=== PATIENT | female | born 1940 | race Caucasian/White ===

== ENCOUNTER 2023-04-16 20:11 | Inpatient (IN) | payer OTHER, MEDICARE ==
[2023-04-16 20:31] VITALS: BMI 27.9
[2023-04-16] MEDS ORDERED: SODIUM CHLORIDE 1,000 ML IV ONE (20:38)
[2023-04-16 20:58] LABS: HEMATOCRIT 33.4 % (32.4-45.2); HEMOGLOBIN 10.7 G/dL (10.7-15.3); MCH 34.1 pg (25.7-33.7); MCHC 32.1 g/dl (32.0-36.0); MEAN CELL VOLUME 106.4 fl (80-96); RBC 3.14 10^6/uL (3.60-5.2); RDW 12.9 % (11.6-15.6); WHITE BLOOD COUNT 7.2 10^3/uL (4.0-10.8)
[2023-04-16 21:03] LABS: INR 1.06 (0.83-1.09); PROTHROMBIN TIME (PATIENT) 12.3 SEC (9.7-13.0)
[2023-04-16 21:11] LABS: EPITHELIAL CELLS FEW /hpf
[2023-04-16 21:14] LABS: MAGNESIUM 1.7 mg/dL (1.8-2.4); PHOSPHOROUS 3.03 (2.5-4.9)
[2023-04-16] MEDS ORDERED: PANTOPRAZOLE SODIUM 40 MG VIAL IVPUSH ONE (23:04)
[2023-04-16] MEDS ORDERED: PANTOPRAZOLE SODIUM 40 MG VIAL ONE (23:05)
[2023-04-16 23:25] LABS: HEMATOCRIT 33.7 % (32.4-45.2); HEMOGLOBIN 10.9 G/dL (10.7-15.3); MCH 34.4 pg (25.7-33.7); MCHC 32.4 g/dl (32.0-36.0); MEAN CELL VOLUME 106.1 fl (80-96); MEAN PLT VOLUME 7.7 fl (7.5-11.1); PLATELET COUNT 313.3 10^3/uL (134-434); RBC 3.18 10^6/uL (3.60-5.2); RDW 12.8 % (11.6-15.6)
[2023-04-17 07:12] LABS: HEMATOCRIT 28.7 % (32.4-45.2); HEMOGLOBIN 9.3 G/dL (10.7-15.3); MCHC 32.3 g/dl (32.0-36.0); MEAN CELL VOLUME 105.3 fl (80-96); MEAN PLT VOLUME 7.9 fl (7.5-11.1); PLATELET COUNT 288.7 10^3/uL (134-434); RBC 2.73 10^6/uL (3.60-5.2); RDW 12.9 % (11.6-15.6); WHITE BLOOD COUNT 4.5 10^3/uL (4.0-10.8)
[2023-04-17 07:20] LABS: ALBUMIN 3.6 g/dl (3.4-5.0); BILIRUBIN,TOTAL 0.3 mg/dl (0.2-1); BLOOD UREA NITROGEN 24.8 mg/dl (7-18); CALCIUM 9.1 mg/dl (8.5-10.1); CREATININE 0.6 mg/dl (0.6-1.3); POTASSIUM 3.7 mmol/L (3.5-5.1); SGPT/ALT 10.1 U/L (7-52); TOT PROT 5.3 g/dl (6.4-8.2)
[2023-04-17] MEDS ORDERED: INSULIN SLIDING SCALE (NOVOLOG) 1 VIAL SQ SCH ×2 (11:00→14:44)
[2023-04-17] MEDS ORDERED: PANTOPRAZOLE SODIUM 40 MG VIAL IVPUSH SCH (13:00)
[2023-04-17] MEDS: LACTATED RINGERS SOLUTION 1,000 ML IV SCH (14:43)
[2023-04-17] MEDS ORDERED: LEVOTHYROXINE SODIUM 100 MCG 5 ML VIAL IVPUSH ONE (15:00)
[2023-04-17 15:40] LABS: HEMATOCRIT 29.1 % (32.4-45.2); HEMOGLOBIN 9.5 GM/dL (10.7-15.3); MCH 33.4 pg (25.7-33.7); MCHC 32.7 g/dl (32.0-36.0); MEAN CELL VOLUME 102.1 fl (80-96); MEAN PLT VOLUME 7.9 fl (7.5-11.1); PLATELET COUNT 277 10^3/uL (134-434); RBC 2.85 M/mm3 (3.60-5.2); RDW 13.3 % (11.6-15.6); WHITE BLOOD COUNT 3.9 K/mm3 (4.0-10.0)
[2023-04-17] MEDS ORDERED: ACETAMINOPHEN 325 MG TABLET (FP) PO ONE (20:01)
[2023-04-17 20:54] LABS: HEMATOCRIT 27.4 % (32.4-45.2); HEMOGLOBIN 9.1 GM/dL (10.7-15.3); MCH 33.6 pg (25.7-33.7); MCHC 33.3 g/dl (32.0-36.0); MEAN CELL VOLUME 101.2 fl (80-96); MEAN PLT VOLUME 7.7 fl (7.5-11.1); PLATELET COUNT 258 10^3/uL (134-434); RBC 2.71 M/mm3 (3.60-5.2); RDW 13.1 % (11.6-15.6); WHITE BLOOD COUNT 6.7 K/mm3 (4.0-10.0)
[2023-04-17] MEDS: PANTOPRAZOLE 40 MG TABLET PO SCH (21:21)
[2023-04-17] MEDS ORDERED: ALPHA LIPOIC ACID 600 MG PO SCH (22:00)
[2023-04-17] MEDS ORDERED: CHONDROITIN SULFATE A SODIUM PO SCH (22:00)
[2023-04-17] MEDS ORDERED: PATIENT'S OWN MEDICATION (NON-FORMULARY) (Glucosamine Sulfate Dipot Chlr [Glucosamine] 1,0 PO SCH (22:00)
[2023-04-18] MEDS: LACTATED RINGERS SOLUTION 1,000 ML IV SCH ×2 (05:31→18:41)
[2023-04-18] MEDS: ANASTROZOLE 1 MG TABLET PO SCH (09:32)
[2023-04-18] MEDS: amLODIPine BESYLATE 2.5 MG TABLET (FP) PO SCH (09:32)
[2023-04-18] MEDS: PANTOPRAZOLE 40 MG TABLET PO SCH ×2 (09:32→21:57)
[2023-04-18] MEDS: LOSARTAN POTASSIUM 50 MG TABLET PO SCH (09:32)
[2023-04-18] MEDS: GABAPENTIN 100 MG CAPSULE PO SCH (09:32)
[2023-04-18] MEDS: DULoxetine HCL 20 MG CAPSULE.DR PO SCH (09:32)
[2023-04-18 09:35] LABS: BASO % 0.4 % (0-2.0); EOS % 9.8 % (0-4.5); HEMATOCRIT 28.6 % (32.4-45.2); HEMOGLOBIN 9.4 GM/dL (10.7-15.3); LYMPH % 24.1 % (8-40); MCH 34.2 pg (25.7-33.7); MEAN CELL VOLUME 103.7 fl (80-96); MEAN PLT VOLUME 8.2 fl (7.5-11.1); MONO % 5.7 % (3.8-10.2); PLATELET COUNT 265 10^3/uL (134-434); RBC 2.75 M/mm3 (3.60-5.2); RDW 13.3 % (11.6-15.6); WHITE BLOOD COUNT 4.2 K/mm3 (4.0-10.0)
[2023-04-18 09:48] LABS: POTASSIUM 3.7 mmol/L (3.5-5.1)
[2023-04-18 09:50] LABS: ALBUMIN 3.4 g/dl (3.4-5.0); CALCIUM 9.1 mg/dL (8.5-10.1); MAGNESIUM 1.8 mg/dL (1.8-2.4)
[2023-04-18 09:51] LABS: BLOOD UREA NITROGEN 9.6 mg/dL (7-18)
[2023-04-18 09:53] LABS: CREATININE 0.5 mg/dL (0.55-1.3); PHOSPHOROUS 2.9 mg/dL (2.5-4.9)
[2023-04-18 09:55] LABS: BILIRUBIN,TOTAL 0.3 mg/dL (0.2-1); TOT PROT 5.8 g/dl (6.4-8.2)
[2023-04-18] MEDS ORDERED: MECLIZINE HCL 25 MG TABLET (FP) PO ONE (16:05)
[2023-04-18 17:43] LABS: URINE APPEARANCE CLEAR; URINE BILIRUBIN NEGATIVE (NEGATIVE); URINE COLOR YELLOW; URINE GLUCOSE (UA) NEGATIVE (NEGATIVE); URINE KETONE NEGATIVE (NEGATIVE); URINE LEUK ESTERASE NEGATIVE (NEGATIVE); URINE NITRITE NEGATIVE (NEGATIVE); URINE PROTEIN NEGATIVE (NEGATIVE)
[2023-04-18] MEDS ORDERED: ROSUVASTATIN CA 5 MG TABLET PO SCH (22:00)
[2023-04-19] MEDS ORDERED: ACETAMINOPHEN 325 MG TABLET (FP) PO PRN (00:19)
[2023-04-19 07:19] VITALS: RESP 18
[2023-04-19 08:56] LABS: BASO % 0.3 % (0-2.0); EOS % 9.4 % (0-4.5); HEMATOCRIT 26.8 % (32.4-45.2); LYMPH % 27.8 % (8-40); MCH 34.8 pg (25.7-33.7); MCHC 33.6 g/dl (32.0-36.0); MEAN CELL VOLUME 103.3 fl (80-96); MEAN PLT VOLUME 7.9 fl (7.5-11.1); MONO % 8.5 % (3.8-10.2); PLATELET COUNT 274 10^3/uL (134-434); RDW 12.9 % (11.6-15.6); WHITE BLOOD COUNT 3.6 K/mm3 (4.0-10.0)
[2023-04-19] MEDS: amLODIPine BESYLATE 2.5 MG TABLET (FP) PO SCH (09:53)
[2023-04-19] MEDS: LOSARTAN POTASSIUM 50 MG TABLET PO SCH (09:53)
[2023-04-19] MEDS: ANASTROZOLE 1 MG TABLET PO SCH (09:53)
[2023-04-19] MEDS: DULoxetine HCL 20 MG CAPSULE.DR PO SCH (09:53)
[2023-04-19] MEDS: PANTOPRAZOLE 40 MG TABLET PO SCH (09:53)
[2023-04-19] MEDS: GABAPENTIN 100 MG CAPSULE PO SCH (09:53)
[2023-04-19] MEDS: LACTATED RINGERS SOLUTION 1,000 ML IV SCH (12:02)
[2023-04-19 13:46] VITALS: BP 153/87; PULSE 88; TEMP 98.1
== END 2023-04-19 14:45 | disposition home or self-care (01) | DRG 378 ==
LOC: FER 20:11 → J8W 04-17 09:23
PROVIDERS: ADMIT Internal Medicine; ATTEND Nurse Practitioner Family
PROC: 0DB78ZX Excision of Stomach, Pylorus, Via Natural or Artificial Opening Endoscopic, Diagnostic (ICD-10-PCS; principal; 2023-04-17 14:45)
DX: K25.0 Acute gastric ulcer with hemorrhage (principal); D62 Acute posthemorrhagic anemia; K76.6 Portal hypertension; I10 Essential (primary) hypertension; E11.9 Type 2 diabetes mellitus without complications; E78.00 Pure hypercholesterolemia, unspecified; K21.9 Gastro-esophageal reflux disease without esophagitis; K44.9 Diaphragmatic hernia without obstruction or gangrene; M41.80 Other forms of scoliosis, site unspecified; K31.89 Other diseases of stomach and duodenum; T39.395A Adverse effect of other nonsteroidal anti-inflammatory drugs [NSAID], initial encounter; E06.3 Autoimmune thyroiditis; K80.70 Calculus of gallbladder and bile duct without cholecystitis without obstruction; Z85.3 Personal history of malignant neoplasm of breast; Z86.718 Personal history of other venous thrombosis and embolism
CPT/HCPCS: 36415; 71045-TC-FY; 80053; 81003; 81015; 82550; 82607; 82728; 82746; 82962; 83540; 83550; 83605; 83690; 83735; 84100; 84484; 85025; 85027; 85045; 85610; 86850; 86900; 86901; 87086; 87635; 88305-TC; 88342-TC; 93005; 97116-GP; 97161-GP; 99285-25

== ENCOUNTER 2023-09-09 21:09 | Inpatient (IN) | payer OTHER, MEDICARE ==
[2023-09-09] MEDS ORDERED: ACETAMINOPHEN 1000 MG/100 ML BAG IVPB ONE (21:31)
[2023-09-09] MEDS ORDERED: ACETAMINOPHEN INJECTION 100 ML IVPB ONE (21:33)
[2023-09-09 22:12] LABS: HEMOGLOBIN 9.3 G/dL (10.7-15.3); MCH 29.8 pg (25.7-33.7); MCHC 30.8 g/dl (32.0-36.0); MEAN CELL VOLUME 96.7 fl (80-96); MEAN PLT VOLUME 7.5 fl (7.5-11.1); PLATELET COUNT 506.8 10^3/uL (134-434); RDW 17.5 % (11.6-15.6); WHITE BLOOD COUNT 6.9 10^3/uL (4.0-10.8)
[2023-09-09 23:01] LABS: POTASSIUM 4.4 mmol/L (3.5-5.1)
[2023-09-09 23:03] LABS: CALCIUM 9.3 mg/dL (8.5-10.1); MAGNESIUM 2.1 mg/dL (1.8-2.4)
[2023-09-09 23:04] LABS: ALBUMIN 3.8 g/dl (3.4-5.0); BLOOD UREA NITROGEN 22.3 mg/dL (7-18)
[2023-09-09 23:07] LABS: CREATININE 1.1 mg/dL (0.55-1.3); PHOSPHOROUS 3.5 mg/dL (2.5-4.9)
[2023-09-09 23:08] LABS: TOT PROT 6.8 g/dl (6.4-8.2)
[2023-09-09 23:09] LABS: BILIRUBIN,TOTAL 0.2 mg/dL (0.2-1)
[2023-09-09] MEDS ORDERED: PROPOFOL 200 MG/20 ML VIAL IVPUSH ONE ×2 (23:30)
[2023-09-10] MEDS ORDERED: CEFTRIAXONE 1,000 MG in DEXTROSE 5%-WATER - 50 ML IVPB ONE (00:03)
[2023-09-10] MEDS ORDERED: cefTRIAXone SODIUM 1 GM VIAL ONE (00:05)
[2023-09-10] MEDS ORDERED: DOCUSATE SODIUM 100 MG CAPSULE (FP) PO PRN (00:43)
[2023-09-10] MEDS ORDERED: MELATONIN 5 MG TABLETS PO PRN (00:52)
[2023-09-10] MEDS: SODIUM CHLORIDE 1,000 ML IV SCH (01:37)
[2023-09-10] MEDS: ACETAMINOPHEN 325 MG TABLET (FP) PO PRN ×3 (04:37→20:21)
[2023-09-10 05:38] VITALS: BMI 29.0
[2023-09-10] MEDS: LEVOTHYROXINE NA 25 MCG TABLET (FP) PO SCH (07:12)
[2023-09-10] MEDS: INSULIN SLIDING SCALE (NOVOLOG) 1 VIAL SQ SCH ×4 (07:13→21:59)
[2023-09-10] MEDS: LOSARTAN POTASSIUM 50 MG TABLET PO SCH (09:21)
[2023-09-10] MEDS: amLODIPine BESYLATE 2.5 MG TABLET (FP) PO SCH (09:22)
[2023-09-10] MEDS: GABAPENTIN 100 MG CAPSULE PO SCH (09:22)
[2023-09-10] MEDS: PANTOPRAZOLE 40 MG TABLET PO SCH (09:22)
[2023-09-10] MEDS: MULTIVITAMINS (DAILY MVI) TABLET (FP) PO SCH (09:24)
[2023-09-10] MEDS: THIAMINE HCL 100 MG TABLET (FP) PO SCH (09:24)
[2023-09-10] MEDS: FOLIC ACID 1 MG TABLET (FP) PO SCH (09:24)
[2023-09-10] MEDS ORDERED: HYDROCHLOROTHIAZIDE 12.5 MG CAPSULE (FP) PO SCH (10:00)
[2023-09-10] MEDS ORDERED: LORazepam 2 MG/ML SDV VIAL IVPUSH PRN (15:47)
[2023-09-10] MEDS: ALBUTEROL SO4 2.5/IPRATROPIUM 0.5 INH SOL 3 ML VIAL.NEB. NEB SCH ×2 (16:00→20:21)
[2023-09-10] MEDS ORDERED: CEFTRIAXONE 1 GM in DEXTROSE 5%-WATER - 50 ML IVPB SCH (22:00)
[2023-09-10] MEDS: ROSUVASTATIN CA 5 MG TABLET PO SCH (22:03)
[2023-09-11] MEDS: ACETAMINOPHEN 325 MG TABLET (FP) PO PRN ×3 (03:38→22:08)
[2023-09-11] MEDS: LEVOTHYROXINE NA 25 MCG TABLET (FP) PO SCH (06:31)
[2023-09-11] MEDS: SODIUM CHLORIDE 1,000 ML IV SCH (06:34)
[2023-09-11] MEDS: INSULIN SLIDING SCALE (NOVOLOG) 1 VIAL SQ SCH ×4 (06:36→21:55)
[2023-09-11] MEDS: ALBUTEROL SO4 2.5/IPRATROPIUM 0.5 INH SOL 3 ML VIAL.NEB. NEB SCH ×4 (09:34→21:55)
[2023-09-11] MEDS: THIAMINE HCL 100 MG TABLET (FP) PO SCH (09:35)
[2023-09-11] MEDS: PANTOPRAZOLE 40 MG TABLET PO SCH (09:35)
[2023-09-11] MEDS: amLODIPine BESYLATE 2.5 MG TABLET (FP) PO SCH (09:35)
[2023-09-11] MEDS: MULTIVITAMINS (DAILY MVI) TABLET (FP) PO SCH (09:36)
[2023-09-11] MEDS: FOLIC ACID 1 MG TABLET (FP) PO SCH (09:36)
[2023-09-11] MEDS: GABAPENTIN 100 MG CAPSULE PO SCH (09:36)
[2023-09-11] MEDS: LOSARTAN POTASSIUM 50 MG TABLET PO SCH (09:36)
[2023-09-11 09:59] LABS: ALBUMIN 3.9 g/dl (3.4-5.0); BILIRUBIN,TOTAL 0.2 mg/dl (0.2-1); CALCIUM 9.5 mg/dl (8.5-10.1); CREATININE 0.6 mg/dl (0.6-1.3); POTASSIUM 4.2 mmol/L (3.5-5.1); TOT PROT 5.9 g/dl (6.4-8.2)
[2023-09-11 10:06] LABS: HEMATOCRIT 28.2 % (32.4-45.2); WHITE BLOOD COUNT 3.7 K/mm3 (4.0-10.0)
[2023-09-11 10:08] LABS: HEMOGLOBIN 8.9 GM/dL (10.7-15.3); MCH 29.2 pg (25.7-33.7); MCHC 31.6 g/dl (32.0-36.0); MEAN CELL VOLUME 92.2 fl (80-96); MEAN PLT VOLUME 7.5 fl (7.5-11.1); PLATELET COUNT 484 10^3/uL (134-434); RBC 3.06 M/mm3 (3.60-5.2); RDW 18.9 % (11.6-15.6)
[2023-09-11 11:13] LABS: ANISOCYTOSIS 1+; MACROCYTOSIS 1+
[2023-09-11] MEDS ORDERED: LORazepam 2 MG/ML SDV VIAL IVPUSH PRN (12:40)
[2023-09-11] MEDS: ROSUVASTATIN CA 5 MG TABLET PO SCH (21:55)
[2023-09-12 01:54] VITALS: RESP 18
[2023-09-12] MEDS: LEVOTHYROXINE NA 25 MCG TABLET (FP) PO SCH (06:27)
[2023-09-12] MEDS: SODIUM CHLORIDE 1,000 ML IV SCH (06:27)
[2023-09-12] MEDS: INSULIN SLIDING SCALE (NOVOLOG) 1 VIAL SQ SCH ×2 (06:40→11:19)
[2023-09-12] MEDS ORDERED: amLODIPine BESYLATE 5 MG TABLET (FP) PO SCH (07:30)
[2023-09-12] MEDS: ACETAMINOPHEN 325 MG TABLET (FP) PO PRN (08:00)
[2023-09-12] MEDS: ALBUTEROL SO4 2.5/IPRATROPIUM 0.5 INH SOL 3 ML VIAL.NEB. NEB SCH ×2 (08:00→11:19)
[2023-09-12 08:04] LABS: HEMATOCRIT 30.3 % (32.4-45.2); HEMOGLOBIN 9.3 G/dL (10.7-15.3); MCH 29.4 pg (25.7-33.7); MCHC 30.5 g/dl (32.0-36.0); MEAN CELL VOLUME 96.1 fl (80-96); MEAN PLT VOLUME 7.8 fl (7.5-11.1); PLATELET COUNT 482.8 10^3/uL (134-434); RBC 3.15 10^6/uL (3.60-5.2); RDW 17.4 % (11.6-15.6); WHITE BLOOD COUNT 4.5 10^3/uL (4.0-10.8)
[2023-09-12] MEDS ORDERED: ACETAMINOPHEN 500 MG TABLET (FP) PO PRN (08:15)
[2023-09-12 08:36] LABS: CALCIUM 9.7 mg/dl (8.5-10.1); CREATININE 0.6 mg/dl (0.6-1.3); POTASSIUM 4.4 mmol/L (3.5-5.1)
[2023-09-12] MEDS: PANTOPRAZOLE 40 MG TABLET PO SCH (09:43)
[2023-09-12] MEDS: MULTIVITAMINS (DAILY MVI) TABLET (FP) PO SCH (09:43)
[2023-09-12] MEDS: GABAPENTIN 100 MG CAPSULE PO SCH (09:43)
[2023-09-12] MEDS: FOLIC ACID 1 MG TABLET (FP) PO SCH (09:43)
[2023-09-12] MEDS: LOSARTAN POTASSIUM 50 MG TABLET PO SCH (09:43)
[2023-09-12] MEDS: THIAMINE HCL 100 MG TABLET (FP) PO SCH (09:43)
[2023-09-12] MEDS ORDERED: ENOXAPARIN NA (PORCINE) 40 MG/0.4 ML DISP.SYRIN SQ SCH (10:00)
[2023-09-12 14:24] VITALS: BP 156/76; PULSE 80; TEMP 98.6
== END 2023-09-12 14:55 | disposition home or self-care (01) | DRG 312 ==
LOC: FER 21:09 → FM/S 09-10 01:27 → OBSVTOIN 09-11 09:27
PROVIDERS: ADMIT Internal Medicine; ATTEND Internal Medicine
DX: R55 Syncope and collapse (principal); S02.32XA Fracture of orbital floor, left side, initial encounter for closed fracture; S43.005A Unspecified dislocation of left shoulder joint, initial encounter; Z85.3 Personal history of malignant neoplasm of breast; J44.9 Chronic obstructive pulmonary disease, unspecified; E11.9 Type 2 diabetes mellitus without complications; I10 Essential (primary) hypertension; E78.5 Hyperlipidemia, unspecified; E03.9 Hypothyroidism, unspecified; F10.129 Alcohol abuse with intoxication, unspecified; K21.9 Gastro-esophageal reflux disease without esophagitis; W19.XXXA Unspecified fall, initial encounter; Y93.9 Activity, unspecified; Y92.89 Other specified places as the place of occurrence of the external cause; Y99.9 Unspecified external cause status
CPT/HCPCS: 36415; 70450-TC; 70486-TC; 71045-TC-FY; 73030-TC-LT-FY; 80048; 80053; 80307; 82550; 82962; 83735; 84100; 84443; 84484; 85027; 93005; 94640; 97116-GP; 97161-GP; 99285-25; G0378

== ENCOUNTER 2023-09-29 04:30 | Inpatient (IN) | payer OTHER, MEDICARE ==
[2023-09-29] MEDS ORDERED: FOLIC ACID INJECTION - 1 MG, THIAMINE HCL 100 MG, MULTIVIT INJECTION ADULT 10 ML in SOD... IVPB ONE (04:36)
[2023-09-29] MEDS ORDERED: THIAMINE HCL 200 MG/2 ML VIAL ONE (04:47)
[2023-09-29] MEDS ORDERED: FOLIC ACID 5 MG/1 ML ONE (04:47)
[2023-09-29] MEDS ORDERED: MULTIVIT INJ. ADULT COMBO WITH VIT K 1 COMBO 10 ML VIAL IV ONE (04:48)
[2023-09-29] MEDS ORDERED: FAMOTIDINE 20 MG/50 ML IVPB 20 MG/50 ML MG IVPB ONE ×2 (05:45→06:53)
[2023-09-29 05:46] LABS: BASO % 0.4 % (0-2.0); EOS % 1.6 % (0-4.5); HEMATOCRIT 26.2 % (32.4-45.2); HEMOGLOBIN 8.5 GM/dL (10.7-15.3); LYMPH % 11.1 % (8-40); MCH 29.8 pg (25.7-33.7); MCHC 32.3 g/dl (32.0-36.0); MEAN PLT VOLUME 7.8 fl (7.5-11.1); MONO % 3.4 % (3.8-10.2); NEUT % 83.5 % (42.8-82.8); PLATELET COUNT 538 10^3/uL (134-434); RBC 2.84 M/mm3 (3.60-5.2); RDW 17.4 % (11.6-15.6); WHITE BLOOD COUNT 9.9 K/mm3 (4.0-10.0)
[2023-09-29] MEDS ORDERED: SODIUM CHLORIDE 0.9% 1000 ML INFUS.BAG IV ONE (07:12)
[2023-09-29 08:54] LABS: ALK PHOS 93 U/L (45-117); ANION GAP 9 mmol/L (4-13); BILIRUBIN,TOTAL 0.2 mg/dL (0.2-1); BLOOD UREA NITROGEN 19.6 mg/dL (7-18); CALCIUM 9.6 mg/dL (8.5-10.1); CHLORIDE 106 mmol/L (98-107); CO2 28 mmol/L (21-32); CREATININE 0.8 mg/dL (0.55-1.3); GLUCOSE,RANDOM 207 mg/dL (74-106); POTASSIUM 4.1 mmol/L (3.5-5.1); SGOT/AST 20 U/L (15-37); SGPT/ALT 19 U/L (13-61); SODIUM 142 mmol/L (136-145); TOT PROT 6.9 g/dl (6.4-8.2)
[2023-09-29 09:40] LABS: LIPASE 79 U/L (73-393)
[2023-09-29 12:28] LABS: EPITHELIAL CELLS 0-5 /hpf
[2023-09-29] MEDS ORDERED: LIDOCAINE 5% TOPICAL PATCH TP ONE (13:50)
[2023-09-29] MEDS: ACETAMINOPHEN 325 MG TABLET (FP) PO PRN (20:18)
[2023-09-29] MEDS: ROSUVASTATIN CA 5 MG TABLET PO SCH (21:45)
[2023-09-29] MEDS: GABAPENTIN 100 MG CAPSULE PO SCH (21:45)
[2023-09-29] MEDS ORDERED: LIDOCAINE PATCH REMOVAL MC SCH (22:00)
[2023-09-30] MEDS: ACETAMINOPHEN 325 MG TABLET (FP) PO PRN ×3 (03:41→19:01)
[2023-09-30 08:28] LABS: CALCIUM 9.7 mg/dl (8.5-10.1); CREATININE 0.8 mg/dl (0.6-1.3); POTASSIUM 3.8 mmol/L (3.5-5.1)
[2023-09-30 08:30] LABS: HEMATOCRIT 27.4 % (32.4-45.2); HEMOGLOBIN 8.5 G/dL (10.7-15.3); MCH 28.7 pg (25.7-33.7); MCHC 31.1 g/dl (32.0-36.0); MEAN CELL VOLUME 92.3 fl (80-96); MEAN PLT VOLUME 7.9 fl (7.5-11.1); PLATELET COUNT 555.5 10^3/uL (134-434); RBC 2.97 10^6/uL (3.60-5.2); RDW 16.2 % (11.6-15.6); WHITE BLOOD COUNT 5.3 10^3/uL (4.0-10.8)
[2023-09-30] MEDS: LEVOTHYROXINE NA 25 MCG TABLET (FP) PO SCH (08:51)
[2023-09-30] MEDS: GABAPENTIN 100 MG CAPSULE PO SCH ×2 (08:59→21:11)
[2023-09-30] MEDS: THIAMINE HCL 100 MG TABLET (FP) PO SCH (08:59)
[2023-09-30] MEDS: amLODIPine BESYLATE 2.5 MG TABLET (FP) PO SCH (08:59)
[2023-09-30] MEDS: PANTOPRAZOLE 40 MG TABLET PO SCH (08:59)
[2023-09-30] MEDS: FOLIC ACID 1 MG TABLET (FP) PO SCH (08:59)
[2023-09-30] MEDS: HYDROCHLOROTHIAZIDE 12.5 MG CAPSULE (FP) PO SCH (09:00)
[2023-09-30] MEDS: ENOXAPARIN NA (PORCINE) 40 MG/0.4 ML DISP.SYRIN SQ SCH (09:03)
[2023-09-30] MEDS ORDERED: PATIENT'S OWN MEDICATION (NON-FORMULARY) (Losartan Potassium [Cozaar] 100 MG Tablet) PO SCH (10:00)
[2023-09-30] MEDS: LOSARTAN POTASSIUM 50 MG TABLET PO SCH (10:34)
[2023-09-30] MEDS: LIDOCAINE 5% TOPICAL PATCH TP SCH ×2 (14:05→16:31)
[2023-09-30] MEDS: ROSUVASTATIN CA 5 MG TABLET PO SCH (21:10)
[2023-09-30] MEDS: LIDOCAINE PATCH REMOVAL MC SCH (21:11)
[2023-10-01] MEDS: ACETAMINOPHEN 325 MG TABLET (FP) PO PRN ×3 (01:55→20:54)
[2023-10-01] MEDS: LEVOTHYROXINE NA 25 MCG TABLET (FP) PO SCH (06:51)
[2023-10-01 08:05] LABS: HEMOGLOBIN 8.7 G/dL (10.7-15.3); MCH 28.8 pg (25.7-33.7); MCHC 31.2 g/dl (32.0-36.0); MEAN CELL VOLUME 92.5 fl (80-96); MEAN PLT VOLUME 7.8 fl (7.5-11.1); PLATELET COUNT 533.9 10^3/uL (134-434); RBC 3.03 10^6/uL (3.60-5.2); RDW 16.6 % (11.6-15.6); WHITE BLOOD COUNT 4.8 10^3/uL (4.0-10.8)
[2023-10-01 09:14] LABS: BILIRUBIN,TOTAL 0.3 mg/dl (0.2-1); CALCIUM 9.5 mg/dl (8.5-10.1); CREATININE 0.7 mg/dl (0.6-1.3); PHOSPHOROUS 4.1 (2.5-4.9); POTASSIUM 4.2 mmol/L (3.5-5.1); TOT PROT 6.1 g/dl (6.4-8.2)
[2023-10-01] MEDS: HYDROCHLOROTHIAZIDE 12.5 MG CAPSULE (FP) PO SCH (09:15)
[2023-10-01] MEDS: GABAPENTIN 100 MG CAPSULE PO SCH ×2 (09:15→21:04)
[2023-10-01] MEDS: amLODIPine BESYLATE 2.5 MG TABLET (FP) PO SCH (09:15)
[2023-10-01] MEDS: LOSARTAN POTASSIUM 50 MG TABLET PO SCH (09:15)
[2023-10-01] MEDS: FOLIC ACID 1 MG TABLET (FP) PO SCH (09:16)
[2023-10-01] MEDS: PANTOPRAZOLE 40 MG TABLET PO SCH (09:17)
[2023-10-01] MEDS: LIDOCAINE 5% TOPICAL PATCH TP SCH (09:18)
[2023-10-01] MEDS: ENOXAPARIN NA (PORCINE) 40 MG/0.4 ML DISP.SYRIN SQ SCH (09:18)
[2023-10-01] MEDS: THIAMINE HCL 100 MG TABLET (FP) PO SCH (11:17)
[2023-10-01 16:19] VITALS: BMI 26.8
[2023-10-01] MEDS: LIDOCAINE PATCH REMOVAL MC SCH (21:04)
[2023-10-01] MEDS: ROSUVASTATIN CA 5 MG TABLET PO SCH (21:04)
[2023-10-02] MEDS: LEVOTHYROXINE NA 25 MCG TABLET (FP) PO SCH (06:38)
[2023-10-02 07:55] LABS: HEMATOCRIT 29.4 % (32.4-45.2); MCH 28.2 pg (25.7-33.7); MCHC 30.5 g/dl (32.0-36.0); MEAN CELL VOLUME 92.1 fl (80-96); MEAN PLT VOLUME 7.7 fl (7.5-11.1); PLATELET COUNT 546.8 10^3/uL (134-434); RBC 3.19 10^6/uL (3.60-5.2); RDW 16.2 % (11.6-15.6)
[2023-10-02 07:59] VITALS: BP 127/64; PULSE 76; RESP 18; TEMP 98
[2023-10-02 08:16] LABS: CALCIUM 9.4 mg/dl (8.5-10.1); CREATININE 0.7 mg/dl (0.6-1.3); POTASSIUM 4.3 mmol/L (3.5-5.1)
[2023-10-02] MEDS: THIAMINE HCL 100 MG TABLET (FP) PO SCH (09:35)
[2023-10-02] MEDS: ACETAMINOPHEN 325 MG TABLET (FP) PO PRN (09:35)
[2023-10-02] MEDS: FOLIC ACID 1 MG TABLET (FP) PO SCH (09:36)
[2023-10-02] MEDS: LOSARTAN POTASSIUM 50 MG TABLET PO SCH (09:36)
[2023-10-02] MEDS: PANTOPRAZOLE 40 MG TABLET PO SCH (09:36)
[2023-10-02] MEDS: amLODIPine BESYLATE 2.5 MG TABLET (FP) PO SCH (09:36)
[2023-10-02] MEDS: HYDROCHLOROTHIAZIDE 12.5 MG CAPSULE (FP) PO SCH (09:36)
[2023-10-02] MEDS: GABAPENTIN 100 MG CAPSULE PO SCH (09:36)
[2023-10-02] MEDS: LIDOCAINE 5% TOPICAL PATCH TP SCH (09:38)
[2023-10-02] MEDS: ENOXAPARIN NA (PORCINE) 40 MG/0.4 ML DISP.SYRIN SQ SCH (09:38)
== END 2023-10-02 15:20 | disposition home or self-care (01) | DRG 897 ==
LOC: FER 04:30 → FM/S 11:27
PROVIDERS: ADMIT Internal Medicine
DX: F10.120 Alcohol abuse with intoxication, uncomplicated (principal); R45.851 Suicidal ideations; I10 Essential (primary) hypertension; E78.5 Hyperlipidemia, unspecified; E11.9 Type 2 diabetes mellitus without complications; E03.9 Hypothyroidism, unspecified; Z79.84 Long term (current) use of oral hypoglycemic drugs; K21.9 Gastro-esophageal reflux disease without esophagitis; R55 Syncope and collapse
CPT/HCPCS: 36415; 70450-TC; 71045-TC-FY; 72125-TC; 73502-TC-RT-FY; 80048; 80053; 80307; 81003; 81015; 83690; 83735; 84100; 84484; 85025; 85027; 87086; 87186; 93005; 97116-GP; 97161-GP; 99285-25

== ENCOUNTER 2024-01-06 13:38 | Emergency (ER) | payer OTHER, MEDICARE ==
[2024-01-06 14:02] VITALS: BP 149/75; PULSE 93; RESP 18; TEMP 98; BMI 27.4
== END 2024-01-06 15:30 | disposition home or self-care (01) ==
LOC: FER 13:38
DX: M79.622 Pain in left upper arm (principal); R22.41 Localized swelling, mass and lump, right lower limb; S46.912A Strain of unspecified muscle, fascia and tendon at shoulder and upper arm level, left arm, initial encounter; X58.XXXA Exposure to other specified factors, initial encounter
CPT/HCPCS: 73060-TC-LT-FY; 73630-TC-RT-FY; 93971-TC; 99284-25